=== PATIENT | female | born 1950 | race Caucasian/White ===

== ENCOUNTER → 2024-09-13 10:55 | Outpatient (REF) | payer MEDICARE, OTHER, SELFPAY ==
[2024-09-13 12:05] LABS: % Basophils 1.2 % (0-2); % Eosinophils 4.4 % (0-6); % Immature Granulocytes 0.3 % (0-0.5); % Lymphocytes 32.7 % (20.5-51.1); % Monocytes 9.1 % (1.7-9.3); % Neutrophils 52.3 % (42.2-75.2); Absolute Basophils 0.1 10^3/uL (0-0.2); Absolute Eosinophils 0.3 10^3/uL (0-0.7); Absolute Monocytes 0.5 10^3/uL (0.1-0.6); Absolute Neutrophils 3.1 10^3/uL (1.4-6.5); Hematocrit 41.5 % (37.0-47.0); Hemoglobin 14.1 g/dL (12.0-16.0); Mean Corpuscular Hgb 34.1 pg (27.0-31.0); Mean Corpuscular Volume 100.5 fL (81.0-99.0); Mean Platelet Volume 9.9 fL (7.4-10.4); Nucleated Red Blood Cells % 0 %; Platelet Count 271 10^3/uL (130-400); Red Blood Cell Count 4.13 10^6/uL (4.20-5.40); Red Cell Dist. Width 13.2 % (11.5-14.5)
[2024-09-13 12:53] LABS: ALT (SGPT) 39 U/L (0-35); AST (SGOT) 37 U/L (14-36); Albumin 4.6 g/dl (3.5-5.0); Alkaline Phosphatase 73 U/L (38-126); Blood Urea Nitrogen 15 mg/dl (7-17); Calcium 9.5 mg/dl (8.4-10.2); Carbon Dioxide 28 mmol/L (22-30); Chloride 100 mmol/L (98-107); Glucose 98 mg/dl (70-99); HDL Cholesterol 77 mg/dl; LDL Cholesterol, Calculated 128 mg/dl; Potassium 5.1 mmol/L (3.5-5.1); Sodium 138 mmol/L (135-145); Total Bilirubin 0.8 mg/dl (0.2-1.3); Total Cholesterol 225 mg/dl (50-199); Triglyceride 102 mg/dl (10-149); Very Low Density Lipoprotein 20 mg/dl (0-30); eGFR > 60.00
[2024-09-13 13:23] LABS: TSH Reflex To Free T4 0.41 uIU/ml (0.47-4.68)
[2024-09-13 13:59] LABS: Free T4 1.58 ng/dl (0.78-2.19)
== END ==
LOC: REG 10:55
PROVIDERS: ATTENDING PHYSICIAN Nurse Practitioner Family
DX: E03.9 Hypothyroidism, unspecified (principal); E78.2 Mixed hyperlipidemia; R73.9 Hyperglycemia, unspecified
CPT/HCPCS: 36415; 80053; 80061; 84439; 84443; 85025

== ENCOUNTER → 2024-11-30 15:02 | Outpatient (REF) | payer MEDICARE, OTHER, SELFPAY ==
[2024-11-30 19:34] LABS: Free T4 1.81 ng/dl (0.78-2.19)
== END ==
LOC: REG 15:02
PROVIDERS: ATTENDING PHYSICIAN Nurse Practitioner Family
DX: Z12.11 Encounter for screening for malignant neoplasm of colon (principal); E03.9 Hypothyroidism, unspecified
CPT/HCPCS: 36415; 84439; 84443

== ENCOUNTER 2025-07-01 15:34 | Emergency (ER) | payer MEDICARE, OTHER, SELFPAY ==
[2025-07-01] VITALS (8 sets, daily range): BP systolic 127–163; BP diastolic 92–101; PULSE 73–84
[2025-07-01 16:12] LABS: Hematocrit 45.9 % (37.0-47.0); Hemoglobin 16.1 g/dL (12.0-16.0); Mean Corp Hgb Conc. 35.1 g/dL (33.0-37.0); Mean Corpuscular Volume 99.8 fL (81.0-99.0); Nucleated Red Blood Cells % 0 %; Platelet Count 207 10^3/uL (130-400); Red Cell Dist. Width 13.5 % (11.5-14.5)
[2025-07-01 16:32] LABS: ALT (SGPT) 26 U/L (0-35); AST (SGOT) 56 U/L (14-36); Albumin 4.8 g/dl (3.5-5.0); Alkaline Phosphatase 55 U/L (38-126); Blood Urea Nitrogen 10 mg/dl (7-17); Calcium 9.4 mg/dl (8.4-10.2); Carbon Dioxide 27 mmol/L (22-30); Chloride 99 mmol/L (98-107); Glucose 123 mg/dl (70-99); Potassium 4.0 mmol/L (3.5-5.1); Sodium 134 mmol/L (135-145); Total Protein 7.9 g/dl (6.3-8.2); eGFR > 60.00
--- NOTE | 2025-07-01 19:41 | ED.GENMED ---
History of Present Illness
General
Chief Complaint: Fall
Source: patient and family
Exam Limitations: none
Time Seen by Provider: 07/01/25 18:32
Nursing documentation reviewed up to this point in time: agreed with
History of Present Illness
History of Present Illness:
Patient without any significant past medical history, currently not on any prescribed medications, presents to ED secondary to intermittent episodes of dizziness with generalized weakness, with exertion over the past 1 month. Last night, as she was
walking up the steps, she experienced similar symptoms, which caused her to fall backwards. Patient reports hitting the back of her head along with left wrist injury from the fall. Denies loss of consciousness. Denies neck pain. Denies loss of
sensation or weakness. Denies difficulty with ambulation. Denies blurry vision. Denies preceding chest palpitations or shortness of breath. Of note, patient states that when she does experience the aforementioned dizziness with weakness, when
she sits down, her symptoms gradually go away.
Review of Systems
Review of Systems
Allergies reviewed?: Yes
All Other Systems: ROS reviewed and negative except as documented in HPI and ROS
Constitutional: Reports no symptoms; Denies fever
EENT: Reports no symptoms
Respiratory: Reports no symptoms; Denies trouble breathing
Cardiac: Reports no symptoms; Denies chest pain or palpitations
ABD/GI: Reports no symptoms
Musculoskeletal: Reports no symptoms
Skin: Reports no symptoms
Neurological: Reports dizzy and weakness; Denies headache
Phy Exam
Physical Exam
Physical Exam:
Physical Exam
General: mild painful distress, not acutely ill. afebrile
Head: nc/at. eomi
Neck: supple. normal range of motion. no midline tenderness
Heart: s1/s2 regular rate and rhythm
Lungs: no acute respiratory distress. clear bilaterally
Abdomen: normal bowel sounds. not tender.
Neuro: alert and oriented x 3. no focal neurological deficits
Skin: no rash
Psychiatric: well kept. interactive and cooperative
Extremities: left wrist diffuse tenderness to palpation with ecchymosis, without deformity
Course
Orders/Labs/Results
Orders:
Orders
07/01/25 15:52
EKG [Electrocardiogram (*1)] Urgent
Reason for Study: Tachycardia
EKG- Treatment ONCE
CR Forearm - Left 2 View Urgent
Comment:
Reason For Exam: fall, injury, swelling
CR Wrist - Left Min 3 Views Urgent
Comment:
Reason For Exam: fall, injury, swelling
07/01/25 15:54
CT Head W/o Iv Contrast Urgent
Comment:
Reason For Exam: fall, head strike
07/01/25 16:02
Complete Blood Count/With Diff Urgent
Comprehensive Metabolic Panel Urgent
Free T4 Urgent
Magnesium Urgent
Comment: ADD ON
TSH Reflex To Free T4 Urgent
Comment: ADD ON
07/01/25 19:39
Acetaminophen [Tylenol] 650 mg PO NOW STA
07/01/25 19:40
Orthostatic VS- Treatment ONCE
07/01/25 19:43
Add On- LAB Urgent
Tests Added?: magnesium, TSH to reflex free T4
Abnormal Lab Results
07/01/25
16:02
Hgb 16.1 H g/dL
(12.0-16.0)
MCV 99.8 H fL
(81.0-99.0)
MCH 35.0 H pg
(27.0-31.0)
Lymphocytes % 17.5 L %
(20.5-51.1)
Sodium 134 L mmol/L
(135-145)
Glucose 123 H mg/dl
(70-99)
Total Bilirubin 1.9 H mg/dl
(0.2-1.3)
AST 56 H U/L
(14-36)
TSH (Reflex) 210.00 H uIU/ml
(0.47-4.68)
Free T4 < 0.07 L ng/dl
(0.78-2.19)
07/01/25 16:02
07/01/25 16:02
Vital Signs
Initial and Last Documented VS:
Initial Vital Signs
Temp Pulse Resp BP Pulse Ox
97.6 F 79 18 147/101 97
07/01/25 15:47 07/01/25 15:47 07/01/25 15:47 07/01/25 15:47 07/01/25 15:47
Last Documented Vital Signs
Temp Pulse Resp BP Pulse Ox
97.6 F 70 16 127/95 96
07/01/25 15:47 07/01/25 20:00 07/01/25 20:00 07/01/25 20:13 07/01/25 20:13
MDM/Problems Addressed
MDM/Problems Addressed:
Abnormal LFTs noted, which will need repeat as outpatient.
Wrist x-ray reviewed and discussed with patient. After hematoma block, wrist gently manipulated to reduce angulation and splint applied afterwards. Patient will be referred to orthopedic surgery for an outpatient consultation. Patient otherwise
is neurovascular intact, at time of discharge. In med patient's intermittent episodes of dizziness and weakness with exertion, patient will be advised to be careful with positional changes and close follow-up with PCP for reevaluation. Patient
expresses understanding at time of discharge.
*Pulse Oximetry
SaO2: 97
Oxygen Mode of Delivery: Room air
Patient hypoxic: no
*Critical Care Note
Total Time (30-74mins, 75-104mins- exclusive of procedures): Not Applicable
ED Attending Note
-
Portions of this chart may have been created with voice recognition software.� Occasional wrong word or��sound alike� substitutions may have occurred due to the inherent limitations of voice recognition software.
Discharge Plan
Departure
Patient Disposition: Home (Routine Discharge)
Date of Disposition: 07/01/25
Time of Disposition: 20:50
Patient with high blood pressure during this ER visit?: Yes
Condition: Fair
Discharge Problem:
Head injury, Fracture of wrist, Dizziness
Instructions: Head Injury in Adults (DC), Dizziness in adults - ED (DC), Wrist Fracture
Referrals:
Vitaliy Holguin I., DO [Family Provider, Internal Medicine]
Bobbi Brown I., [Active, Orthopedics]
Activity Restrictions/Additional Instructions:
As discussed, please follow-up with your primary care physician and referred orthopedic surgeon for further evaluation and treatment, including repeat blood work in 2-3 weeks
Interventions
Interventions:
*Risk Screen - Suicide Last Done: 07/01/25 15:47
*General Assessment Last Done: 07/01/25 15:47
*Neglect/Abuse Screening Last Done: 07/01/25 15:47
*ED COVID-19 Vaccine History Last Done: 07/01/25 15:47
*ED Influenza Vaccine History Last Done: 07/01/25 15:47
[facility] Risk Assessment Tool Last Done: 07/01/25 18:30
*Nursing Disposition Last Done: 07/01/25 20:59
ED-Musculoskeletal Assessment Last Done: 07/01/25 18:28
ED- Neurological Assessment Last Done: 07/01/25 18:28
ED-Skin Assessment Last Done: 07/01/25 18:28
Discharge Date and Time
Discharge Date/Time: 07/01/25 21:00
Print Language: UPPER SORBIAN
[2025-07-01 20:15] LABS: Magnesium 2.1 mg/dl (1.6-2.3)
== END 2025-07-01 21:00 | disposition home or self-care (01) ==
LOC: EMR 15:34
PROVIDERS: Emergency Medicine; EMERGENCY PHYSICIAN Emergency Medicine; FAMILY PHYSICIAN Internal Medicine
DX: S09.90XA Unspecified injury of head, initial encounter (principal); S52.572A Other intraarticular fracture of lower end of left radius, initial encounter for closed fracture; S52.592A Other fractures of lower end of left radius, initial encounter for closed fracture; R42 Dizziness and giddiness; W19.XXXA Unspecified fall, initial encounter; Y93.01 Activity, walking, marching and hiking; R53.1 Weakness
CPT/HCPCS: 99284; 25605; 70450; 73090; 73110; 80053; 83735; 84439; 84443; 85025; 93005